=== PATIENT | female | born 1935 | race Caucasian/White ===

== ENCOUNTER 2019-11-19 18:30 | Inpatient (IN) | payer OTHER, MEDICAID ==
[~2019-11-19] VITALS: Ht 152.4 cm; Wt 70.3 kg
[2019-11-19 18:44] VITALS: BP_SYST 198
[2019-11-19 19:38] LABS: BASOPHILS % (AUTO) 0.2 % (0.0-2.0); EOSINOPHILS % (AUTO) 0.2 % (0.0-4.0); HEMATOCRIT 39.4 % (36-48); HEMOGLOBIN 12.9 g/dL (12.0-16.0); LYMPHOCYTES % (AUTO) 9.2 % (20.5-51.5); MEAN CORPUSCULAR HEMOGLOBIN 29 pg (27-31); MEAN CORPUSCULAR HGB CONC 33 % (32-36); MEAN CORPUSCULAR VOLUME 89 fL (79.0-98.0); MONOCYTES # (AUTO) 0.3 K/uL (0.0-1.0); MONOCYTES % (AUTO) 2.6 % (1.7-9.3); NEUTROPHILS # (AUTO) 9.2 K/uL (1.8-7.7); NEUTROPHILS % (AUTO) 87.8 % (40.0-70.0); PLATELET COUNT (AUTO) 295 K/uL (130-430); RED BLOOD CELL COUNT(AUTO) 4.41 MIL/uL (4.2-6.2); RED CELL DISTRIBUTION WIDTH 15.2 % (9.0-15.0); WHITE BLOOD COUNT (AUTO) 10.5 K/uL (4.8-10.8)
[2019-11-19 19:47] LABS: ANION GAP 11 (5-15); CALCIUM 9.1 mg/dL (8.4-11.0); CHLORIDE 102 mmol/L (98-107); CREATININE 0.82 mg/dL (0.55-1.30); GLUCOSE 115 mg/dL (70-99); POTASSIUM 3.7 mmol/L (3.5-5.1); SODIUM SERUM 138 mmol/L (136-145); UREA NITROGEN, BLOOD 11 mg/dL (8-21)
[2019-11-19 20:02] LABS: ALANINE AMINOTRANSFERASE 20 U/L (12-78); ALBUMIN 3.6 g/dL (3.4-4.8); ASPARTATE AMINOTRANSFERASE 20 U/L (10-37); TOTAL BILIRUBIN 0.3 mg/dL (0.0-1.0)
[2019-11-19] MEDS ORDERED: NAPR-1174 PO (20:09)
[2019-11-19] MEDS ORDERED: DONE10TA44 PO (20:09)
[2019-11-19] MEDS ORDERED: OLME20TA13 PO (20:09)
[2019-11-19] MEDS ORDERED: MEMA10TA PO (20:09)
[2019-11-19] MEDS ORDERED: NACL 0.9% 1,000 ML IV ONE (20:15)
[2019-11-19] MEDS ORDERED: cefTRIAXone 1 GM IVPB PREMIX 50 ML IV ONE (20:30)
[2019-11-19] MEDS ORDERED: ONDANSETRON HCL 4 MG/2 ML VIAL IVP ONE (20:30)
[2019-11-19] MEDS ORDERED: ONDANSETRON HCL 4 MG/2 ML VIAL ONE (20:32)
[2019-11-19 20:49] LABS: BILIRUBIN,URINE NEGATIVE (NEGATIVE); BLOOD, URINE 1+ (NEGATIVE); CLARITY/URINE SL CLOUDY (CLEAR); COLOR,URINE YELLOW (YELLOW); GLUCOSE,URINE NEGATIVE (NEGATIVE); KETONES,URINE NEGATIVE (NEGATIVE); NITRITE, URINE POSITIVE (NEGATIVE); PROTEIN URINE 1+ (NEGATIVE); UROBILINOGEN,URINE 0.2 (0.2-1.0)
[2019-11-19 21:01] LABS: LEUKOCYTE ESTERASE ,URINE TRACE (NEGATIVE)
[2019-11-19 21:04] LABS: BACTERIA,URINE MANY /HPF (None Seen); MUCUS,URINE None Seen /LPF (None Seen); RBC,URINE 0-3 /HPF (0-3)
[2019-11-19] MEDS ORDERED: KETOROLAC TROMETHAMINE 30 MG VIAL IVP ONE (22:15)
[2019-11-19] MEDS ORDERED: ONDANSETRON HCL 4 MG/2 ML VIAL IVP PRN (23:15)
[2019-11-19] MEDS ORDERED: HYDROcodone/ACETAMIN 5-325 MG TAB (NORCO/ VICODIN) PO PRN (23:15)
[2019-11-19] MEDS ORDERED: ACETAMINOPHEN 325 MG TABLET PO PRN (23:15)
[2019-11-20 00:07] LABS: FREE T4 (FREE THYROXINE) 0.9 ng/dl (0.8-1.5); PHOSPHORUS 3.1 mg/dL (2.7-4.5); THYROID STIMULATING HORMONE 1.08 uIu/mL (0.36-3.74)
[2019-11-20 00:44] VITALS: BP_SYST 151
[2019-11-20 07:26] LABS: CHOLESTEROL 161 mg/dL (<200); HDL CHOLESTEROL 32 mg/dL (>55); LDL CHOLESTEROL 98 mg/dL (<100); TRIGLYCERIDES 149 mg/dL (30-150)
[2019-11-20 08:00] VITALS: BP_SYST 157
[2019-11-20] MEDS ORDERED: NAPROXEN 250 MG TABLET PO PRN (09:15)
[2019-11-20] MEDS ORDERED: MEMANTINE HCL 5 MG TABLET PO ONE (09:30)
[2019-11-20] MEDS ORDERED: LOSARTAN POTASSIUM 50 MG TABLET (COZAAR) PO ONE (09:30)
[2019-11-20] MEDS: DOCUSATE SODIUM 100 MG CAPSULE PO SCH (09:45)
[2019-11-20 09:48] LABS: BASOPHILS % (AUTO) 0.4 % (0.0-2.0); EOSINOPHILS # (AUTO) 0.1 K/uL (0.0-0.4); EOSINOPHILS % (AUTO) 1.8 % (0.0-4.0); HEMATOCRIT 38.6 % (36-48); HEMOGLOBIN 12.3 g/dL (12.0-16.0); LYMPHOCYTES # (AUTO) 1.6 K/uL (1.0-5.5); LYMPHOCYTES % (AUTO) 20.3 % (20.5-51.5); MEAN CORPUSCULAR HEMOGLOBIN 29 pg (27-31); MEAN CORPUSCULAR HGB CONC 32 % (32-36); MEAN CORPUSCULAR VOLUME 91 fL (79.0-98.0); MONOCYTES # (AUTO) 0.5 K/uL (0.0-1.0); MONOCYTES % (AUTO) 5.7 % (1.7-9.3); NEUTROPHILS # (AUTO) 5.7 K/uL (1.8-7.7); NEUTROPHILS % (AUTO) 71.8 % (40.0-70.0); PLATELET COUNT (AUTO) 276 K/uL (130-430); RED BLOOD CELL COUNT(AUTO) 4.26 MIL/uL (4.2-6.2); RED CELL DISTRIBUTION WIDTH 15.2 % (9.0-15.0); WHITE BLOOD COUNT (AUTO) 7.9 K/uL (4.8-10.8)
[2019-11-20 09:59] LABS: ALANINE AMINOTRANSFERASE 18 U/L (12-78); ALBUMIN 3.4 g/dL (3.4-4.8); ANION GAP 7 (5-15); ASPARTATE AMINOTRANSFERASE 19 U/L (10-37); C-REACTIVE PROTEIN QUANT 0.3 mg/dL (0-0.5); CALCIUM 9.5 mg/dL (8.4-11.0); CHLORIDE 105 mmol/L (98-107); CREATININE 0.74 mg/dL (0.55-1.30); GLUCOSE 86 mg/dL (70-99); SODIUM SERUM 138 mmol/L (136-145); TOTAL BILIRUBIN 0.5 mg/dL (0.0-1.0); UREA NITROGEN, BLOOD 10 mg/dL (8-21)
[2019-11-20] MEDS: cefTRIAXone 1 GM in D5W 50 ML IV SCH (10:34)
[2019-11-20 10:36] LABS: ERYTHROCYTE SEDIMENTATION RATE 27 MM/HR (0-20)
[2019-11-20 12:00] VITALS: BP_SYST 141
[2019-11-20 16:00] VITALS: BP_SYST 152
[2019-11-20 19:22] VITALS: BP_SYST 144
[2019-11-20 19:45] VITALS: BP_SYST 144
[2019-11-20] MEDS: MEMANTINE HCL 5 MG TABLET PO SCH (21:11)
[2019-11-20] MEDS: DONEPEZIL HCL 5 MG TABLET (ARICEPT) PO SCH (21:11)
[2019-11-21] VITALS: BP_SYST 143
[2019-11-21 07:04] LABS: BASOPHILS % (AUTO) 0.7 % (0.0-2.0); EOSINOPHILS # (AUTO) 0.2 K/uL (0.0-0.4); EOSINOPHILS % (AUTO) 4.1 % (0.0-4.0); HEMATOCRIT 36.9 % (36-48); HEMOGLOBIN 11.8 g/dL (12.0-16.0); LYMPHOCYTES # (AUTO) 1.7 K/uL (1.0-5.5); MEAN CORPUSCULAR HEMOGLOBIN 29 pg (27-31); MEAN CORPUSCULAR HGB CONC 32 % (32-36); MEAN CORPUSCULAR VOLUME 91 fL (79.0-98.0); MONOCYTES # (AUTO) 0.4 K/uL (0.0-1.0); MONOCYTES % (AUTO) 7.2 % (1.7-9.3); NEUTROPHILS # (AUTO) 2.8 K/uL (1.8-7.7); PLATELET COUNT (AUTO) 254 K/uL (130-430); RED BLOOD CELL COUNT(AUTO) 4.07 MIL/uL (4.2-6.2); RED CELL DISTRIBUTION WIDTH 15.3 % (9.0-15.0); WHITE BLOOD COUNT (AUTO) 5.1 K/uL (4.8-10.8)
[2019-11-21 07:09] LABS: ANION GAP 7 (5-15); CHLORIDE 105 mmol/L (98-107); CREATININE 0.71 mg/dL (0.55-1.30); GLUCOSE 86 mg/dL (70-99); PHOSPHORUS 3.6 mg/dL (2.7-4.5); POTASSIUM 4.1 mmol/L (3.5-5.1); SODIUM SERUM 140 mmol/L (136-145); UREA NITROGEN, BLOOD 11 mg/dL (8-21)
[2019-11-21 07:17] VITALS: BP_SYST 166
[2019-11-21] MEDS: LOSARTAN POTASSIUM 50 MG TABLET (COZAAR) PO SCH (07:22)
[2019-11-21 07:53] LABS: CALCIUM 9.1 mg/dL (8.4-11.0)
[2019-11-21] MEDS: DOCUSATE SODIUM 100 MG CAPSULE PO SCH (08:05)
[2019-11-21] MEDS: MEMANTINE HCL 5 MG TABLET PO SCH ×2 (08:05→20:16)
[2019-11-21] MEDS: LACTOBACILLUS RHAMNOSUS GG 1 CAP CAPSULE PO SCH (08:05)
[2019-11-21] MEDS ORDERED: ACETAMINOPHEN 650 MG/20.3 ML UDC PO PRN (08:45)
[2019-11-21] MEDS ORDERED: MECLIZINE HCL 25 MG TABLET (ANITVERT) PO PRN (08:45)
[2019-11-21] MEDS: cefTRIAXone 1 GM in D5W 50 ML IV SCH (09:37)
[2019-11-21 12:53] VITALS: BP_SYST 147
[2019-11-21 16:30] VITALS: BP_SYST 140
[2019-11-21] MEDS: DONEPEZIL HCL 5 MG TABLET (ARICEPT) PO SCH (20:16)
[2019-11-21 20:54] VITALS: BP_SYST 136
[2019-11-22 00:13] VITALS: BP_SYST 153
[2019-11-22 08:00] VITALS: BP_SYST 128
[2019-11-22] MEDS: LACTOBACILLUS RHAMNOSUS GG 1 CAP CAPSULE PO SCH (09:00)
[2019-11-22] MEDS: MEMANTINE HCL 5 MG TABLET PO SCH (09:00)
[2019-11-22] MEDS: LOSARTAN POTASSIUM 50 MG TABLET (COZAAR) PO SCH (09:00)
[2019-11-22] MEDS: DOCUSATE SODIUM 100 MG CAPSULE PO SCH (09:00)
[2019-11-22 11:16] LABS: HEMATOCRIT 38.6 % (36-48); HEMOGLOBIN 12.3 g/dL (12.0-16.0); MEAN CORPUSCULAR VOLUME 91 fL (79.0-98.0); RED BLOOD CELL COUNT(AUTO) 4.26 MIL/uL (4.2-6.2); WHITE BLOOD COUNT (AUTO) 5.5 K/uL (4.8-10.8)
[2019-11-22 11:17] LABS: BASOPHILS % (AUTO) 0.4 % (0.0-2.0); EOSINOPHILS # (AUTO) 0.2 K/uL (0.0-0.4); EOSINOPHILS % (AUTO) 3.9 % (0.0-4.0); LYMPHOCYTES # (AUTO) 1.3 K/uL (1.0-5.5); LYMPHOCYTES % (AUTO) 23.2 % (20.5-51.5); MEAN CORPUSCULAR HEMOGLOBIN 29 pg (27-31); MEAN CORPUSCULAR HGB CONC 32 % (32-36); MONOCYTES # (AUTO) 0.4 K/uL (0.0-1.0); MONOCYTES % (AUTO) 7.2 % (1.7-9.3); NEUTROPHILS # (AUTO) 3.6 K/uL (1.8-7.7); NEUTROPHILS % (AUTO) 65.3 % (40.0-70.0); PLATELET COUNT (AUTO) 251 K/uL (130-430); RED CELL DISTRIBUTION WIDTH 15.2 % (9.0-15.0)
[2019-11-22 11:43] LABS: ANION GAP 8 (5-15); CHLORIDE 105 mmol/L (98-107); CREATININE 0.68 mg/dL (0.55-1.30); GLUCOSE 93 mg/dL (70-99); POTASSIUM 3.9 mmol/L (3.5-5.1); SODIUM SERUM 140 mmol/L (136-145); UREA NITROGEN, BLOOD 12 mg/dL (8-21)
[2019-11-22 12:17] VITALS: BP_SYST 155
[2019-11-22] MEDS ORDERED: LEVO500T89 PO (15:41)
[2019-11-22 16:25] VITALS: BP_SYST 168
[2019-11-22 16:59] VITALS: BP_SYST 150
== END 2019-11-22 19:45 | disposition home health service (06) | DRG 689 ==
LOC: SED 18:30 → SMU 23:01
PROVIDERS: ADMIT Family Medicine; ATTEND Family Medicine
DX: N39.0 Urinary tract infection, site not specified (principal); G93.41 Metabolic encephalopathy; R31.9 Hematuria, unspecified; B96.20 Unspecified Escherichia coli [E. coli] as the cause of diseases classified elsewhere; F03.90 Unspecified dementia, unspecified severity, without behavioral disturbance, psychotic disturbance, mood disturbance, and anxiety; I10 Essential (primary) hypertension; M19.90 Unspecified osteoarthritis, unspecified site; Z79.899 Other long term (current) drug therapy; Z88.0 Allergy status to penicillin
CPT/HCPCS: 36415; 70450-TC; 71045; 76770; 80048; 80053; 80061; 81000-TC; 82550-TC; 83036; 83690-TC; 83735-TC; 83880; 84100-TC; 84439; 84443-TC; 84484; 85025; 85651-TC; 86140; 87040-TC; 87086; 87186-TC; 93005; 93880; 96365; 96375; 99285; J0696; J1885; J2405; J7060

== ENCOUNTER 2022-07-29 17:43 | Emergency (ER) | payer OTHER, MEDICAID ==
[~2022-07-29] VITALS: Ht 160 cm; Wt 59.0 kg
[~2022-07-29 17:43] MED LIST: DONE10TA44 PO; LEVO-62 PO; MEMA10TA PO; OLME20TA74 PO
[2022-07-29 18:17] VITALS: BP_SYST 160
[2022-07-29] MEDS ORDERED: NACL 0.9% 1,000 ML IV ONE (19:45)
[2022-07-29 20:09] LABS: BILIRUBIN,URINE NEGATIVE (NEGATIVE); CLARITY/URINE CLEAR (CLEAR); COLOR,URINE YELLOW (YELLOW); GLUCOSE,URINE NEGATIVE (NEGATIVE); KETONES,URINE NEGATIVE (NEGATIVE); LEUKOCYTE ESTERASE ,URINE 1+ (NEGATIVE); NITRITE, URINE NEGATIVE (NEGATIVE); PROTEIN URINE NEGATIVE (NEGATIVE); UROBILINOGEN,URINE 0.2 (0.2-1.0)
[2022-07-29 20:10] LABS: BLOOD, URINE TRACE (NEGATIVE)
[2022-07-29 20:17] LABS: BACTERIA,URINE FEW /HPF (None Seen); RBC,URINE 0-3 /HPF (0-3); WBC,URINE 0-3 /HPF (0-3)
[2022-07-29 20:18] LABS: MUCUS,URINE None Seen /LPF (None Seen)
[2022-07-29 20:19] LABS: BASOPHILS % (AUTO) 0.7 % (0.0-2.0); EOSINOPHILS % (AUTO) 0.8 % (0.0-4.0); HEMATOCRIT 40.1 % (36-48); HEMOGLOBIN 12.7 g/dL (12.0-16.0); LYMPHOCYTES # (AUTO) 1.8 K/uL (1.0-5.5); LYMPHOCYTES % (AUTO) 34.4 % (20.5-51.5); MEAN CORPUSCULAR HEMOGLOBIN 29 pg (27-31); MEAN CORPUSCULAR HGB CONC 32 % (32-36); MEAN CORPUSCULAR VOLUME 92 fL (79.0-98.0); MONOCYTES # (AUTO) 0.3 K/uL (0.0-1.0); MONOCYTES % (AUTO) 6.1 % (1.7-9.3); PLATELET COUNT (AUTO) 273 K/uL (130-430); RED BLOOD CELL COUNT(AUTO) 4.38 MIL/uL (4.2-6.2); RED CELL DISTRIBUTION WIDTH 16.9 % (9.0-15.0); WHITE BLOOD COUNT (AUTO) 5.2 K/uL (4.8-10.8)
[2022-07-29 20:29] LABS: ANION GAP 9 (5-15); CALCIUM 9.1 mg/dL (8.4-11.0); CHLORIDE 106 mmol/L (98-107); GLUCOSE 95 mg/dL (70-99); POTASSIUM 3.4 mmol/L (3.5-5.1); UREA NITROGEN, BLOOD 7 mg/dL (8-21)
[2022-07-29 20:34] LABS: ALANINE AMINOTRANSFERASE 23 U/L (12-78); ALBUMIN 3.8 g/dL (3.4-4.8); ASPARTATE AMINOTRANSFERASE 21 U/L (10-37); TOTAL BILIRUBIN 0.5 mg/dL (0.0-1.0)
[2022-07-29] MEDS ORDERED: cefTRIAXone 1 GM IVPB PREMIX 50 ML IV ONE (22:30)
[2022-07-29] MEDS ORDERED: NITR-85 PO (23:31)
[2022-07-29 23:55] VITALS: BP_SYST 139
== END 2022-07-29 23:55 | disposition home or self-care (01) ==
LOC: SED 17:43
DX: N39.0 Urinary tract infection, site not specified (principal); R51.9 Headache, unspecified; R11.2 Nausea with vomiting, unspecified; I10 Essential (primary) hypertension; Z88.0 Allergy status to penicillin; Z79.899 Other long term (current) drug therapy
CPT/HCPCS: 99284; 96365; 71045; 96361; 80053; 81000; 85025; 87040; 87086; 36415; 83605; J0696; J7030